=== PATIENT | male | born 1960 | race Caucasian/White ===

== ENCOUNTER 2020-03-29 17:32 | Emergency (ER) | payer OTHER, SELFPAY ==
[~2020-03-29] VITALS: Ht 165.1 cm; Wt 86.2 kg
[2020-03-29 20:10] VITALS: BP 146/90
== END 2020-03-29 20:10 | disposition home or self-care (01) ==
LOC: ED 17:32
DX: U07.1 COVID-19 (principal)
CPT/HCPCS: U0003-CS